=== PATIENT | male | born 1950 | race Two or more races ===

== ENCOUNTER 2020-07-15 14:56 | Emergency (ER) | payer OTHER ==
[~2020-07-15] VITALS: Ht 172.7 cm; Wt 95.3 kg
[2020-07-15 16:55] VITALS: BP 135/78
== END 2020-07-15 17:08 | disposition home or self-care (01) ==
LOC: ER 14:56
DX: S91.131A Puncture wound without foreign body of right great toe without damage to nail, initial encounter (principal); I10 Essential (primary) hypertension; E11.9 Type 2 diabetes mellitus without complications; E78.5 Hyperlipidemia, unspecified; W26.8XXA Contact with other sharp object(s), not elsewhere classified, initial encounter; Y93.89 Activity, other specified; Y92.89 Other specified places as the place of occurrence of the external cause; Y99.8 Other external cause status
CPT/HCPCS: 73630; 82962

== ENCOUNTER 2020-08-20 07:59 | Inpatient (IN) | payer OTHER ==
[~2020-08-20] VITALS: Ht 172.7 cm; Wt 96.0 kg
[2020-08-20] MEDS ORDERED: SODIUM CHLORIDE 0.9% 1,000 ML IV ONE ×2 (08:45→16:30)
[2020-08-20 08:46] LABS: Basophils # (auto) 0.1 10 ^3/uL (0-0.2); Basophils % (auto) 0.6 % (0.0-2.0); Eosinophils # (auto) 0 10 ^3/uL (0-0.8); Hemoglobin 16.5 g/dL (13.5-17.5); Lymphocytes # (auto) 1.4 10 ^3/uL (0.4-5.4); Lymphocytes % (auto) 5.7 % (10.0-50.0); Mean Corpuscular Hemoglobin 30.9 pg (28.0-32.0); Mean Corpuscular Hgb Conc. 35.2 g/dL (32.0-36.0); Monocytes # (auto) 2.1 10 ^3/uL (0-1.3); Monocytes % (auto) 8.5 % (0.0-12.0); Neutrophils # (auto) 20.7 10 ^3/uL (1.6-8.6); Neutrophils % (auto) 85.2 % (37.0-80.0); Platelet Count (auto) 237 10^3/uL (140-450); Red Blood Cells 5.34 10^6/uL (4.5-5.90); Red Cell Distribution Width 13.8 % (11.8-14.3); White Blood Cell 24.3 10^3/uL (4.4-10.8)
[2020-08-20] MEDS ORDERED: InsuLIN REG 1unit/0.01ml Soln (100units/ml) IV ONE (09:00)
[2020-08-20 09:14] LABS: Alkaline Phosphatase 121 U/L (45-117); Anion Gap 23 (5-15); Aspartate Aminotransferase 15 U/L (15-37); BUN/Creatinine Ratio 13.9; Blood Urea Nitrogen 14 mg/dL (7-18); Carbon Dioxide 10 mmol/L (21-32); Chloride 102 mmol/L (98-107); GFR African American 94 mL/min; GFR Non-African American 78 mL/min; Sodium 135 mmol/L (136-145)
[2020-08-20 09:15] LABS: Alanine Aminotransferase 22 U/L (16-61); Bilirubin, Total 1.8 mg/dL (0.2-1.0); Calcium 8.8 mg/dL (8.5-10.1); Total Protein 8.1 g/dL (6.4-8.2)
[2020-08-20 09:23] LABS: Glucose 409 mg/dL (74-106)
[2020-08-20 09:25] LABS: Urine Bacteria NONE SEEN /hpf (None Seen); Urine Blood Negative /uL (Negative); Urine Hyaline Cast FEW /lpf (0 - 2); Urine Mucus FEW (None Seen); Urine Specific Gravity 1.023 (1.001-1.035); Urine WBC 24 /hpf (0 - 3)
[2020-08-20] MEDS ORDERED: DEXTROSE (50%) 50ML SYRG IV PRN (10:45)
[2020-08-20] MEDS: InsuLIN R (HUMAN) 100 UNITS in SODIUM CHL 0.9% 99 ML IV SCH ×6 (11:00→18:21)
[2020-08-20] MEDS: ACCU-CHEK COMFORT CURVE STRIP VI SCH ×7 (12:18→23:50)
[2020-08-20] MEDS ORDERED: NITROGLYCERIN 0.4 MG SL TAB SL PRN ×2 (13:15→17:15)
[2020-08-20] MEDS ORDERED: MORPHINE SULF INJ 2 MG/ML SYRINGE 1ML IV PRN ×3 (13:15→17:15)
[2020-08-20] MEDS: SOD CHL 0.9%/ KCL 20MEQ 1,000 ML IV SCH (16:30)
[2020-08-20] MEDS ORDERED: SODIUM CHLORIDE 0.9% 1,000 ML IV SCH (16:30)
[2020-08-20] MEDS ORDERED: LACTATED RINGER'S 2,000 ML IV ONE (16:30)
[2020-08-20] MEDS ORDERED: D5W/ SOD CHL 0.9%/KCL 20MEQ 1,000 ML IV SCH ×2 (16:30→16:45)
[2020-08-20] MEDS ORDERED: METOCLOPRAMIDE HCL 5MG/ml INJ 2ml VIAL IV PRN (17:15)
[2020-08-20] MEDS ORDERED: ALUM & MAG HYDROX-SIMETH LIQ(MAALOX) 30 ML PO PRN (17:15)
[2020-08-20] MEDS ORDERED: HYDROmorphone HCL 2 MG/ML VL IV PRN (17:15)
[2020-08-20] MEDS ORDERED: cefTRIAXone 1GM/50ML D5W 50 ML IV ONE (17:15)
[2020-08-20] MEDS ORDERED: LORazepam 0.5 MG TAB PO PRN (17:15)
[2020-08-20] MEDS ORDERED: hydrALAZINE HCL 20 MG/ML VL IV PRN (17:15)
[2020-08-20] MEDS ORDERED: DOCUSATE SOD 100 MG CAP PO PRN (17:15)
[2020-08-20] MEDS ORDERED: CLINDAMYCIN 600MG IV 50 ML IV ONE (18:15)
[2020-08-20 18:28] LABS: Cholesterol 129 mg/dL (< 200)
[2020-08-20 18:32] LABS: HDL Cholesterol 47 mg/dL (40-59); LDL Cholesterol 70 mg/dL (< 100); Triglycerides 77 mg/dL (< 150)
[2020-08-20 19:22] LABS: Alcohol, Urine < 3.0 mg/dL (0-10); Amphetamine Screen, Urine NEGATIVE (NEGATIVE); Barbiturate Scree,Urine NEGATIVE (NEGATIVE); Benzodiazephine Screen, Urine NEGATIVE (NEGATIVE); Cannabinoid Screen, Urine NEGATIVE (NEGATIVE); Cocaine Screen, Urine NEGATIVE (NEGATIVE); Opiate Scree,Urine NEGATIVE (NEGATIVE); Phencyclidine Screen, Urine NEGATIVE (NEGATIVE)
[2020-08-20] MEDS: ATORVASTATIN 20 MG TAB PO SCH (23:28)
[2020-08-20] MEDS: FAMOTIDINE (10MG/ML) 2ML VL IV SCH (23:29)
[2020-08-21] MEDS: SOD CHL 0.9%/ KCL 20MEQ 1,000 ML IV SCH ×2 (00:50→10:07)
[2020-08-21] MEDS: CLINDAMYCIN 600MG IV 50 ML IV SCH ×3 (03:30→18:00)
[2020-08-21] MEDS: ACCU-CHEK COMFORT CURVE STRIP VI SCH ×3 (03:40→22:00)
[2020-08-21 05:07] LABS: Basophils # (auto) 0.1 10 ^3/uL (0-0.2); Basophils % (auto) 0.4 % (0.0-2.0); Eosinophils # (auto) 0 10 ^3/uL (0-0.8); Eosinophils % (auto) 0.1 % (0.0-7.0); Hematocrit 40.1 % (41.0-53.0); Hemoglobin 14.5 g/dL (13.5-17.5); Lymphocytes # (auto) 0.9 10 ^3/uL (0.4-5.4); Lymphocytes % (auto) 5.9 % (10.0-50.0); Mean Corpuscular Hemoglobin 31.4 pg (28.0-32.0); Mean Corpuscular Hgb Conc. 36.1 g/dL (32.0-36.0); Mean Corpuscular Volume 86.9 fL (80.0-100.0); Monocytes # (auto) 0.9 10 ^3/uL (0-1.3); Monocytes % (auto) 6.1 % (0.0-12.0); Neutrophils # (auto) 13.5 10 ^3/uL (1.6-8.6); Neutrophils % (auto) 87.5 % (37.0-80.0); Nucleated Red Blood Cells % 0.1 %; Platelet Count (auto) 182 10^3/uL (140-450); Red Blood Cells 4.61 10^6/uL (4.5-5.90); Red Cell Distribution Width 13.6 % (11.8-14.3); White Blood Cell 15.4 10^3/uL (4.4-10.8)
[2020-08-21 05:25] LABS: Albumin 2.8 g/dL (3.4-5.0); Anion Gap 8 (5-15); Blood Urea Nitrogen 13 mg/dL (7-18); Calcium 7.7 mg/dL (8.5-10.1); Carbon Dioxide 22 mmol/L (21-32); Chloride 110 mmol/L (98-107); Glucose 161 mg/dL (74-106); Sodium 140 mmol/L (136-145)
[2020-08-21 05:31] LABS: Alanine Aminotransferase 14 U/L (16-61); Alkaline Phosphatase 84 U/L (45-117); Aspartate Aminotransferase 11 U/L (15-37); BUN/Creatinine Ratio 22.8; Bilirubin, Total 0.9 mg/dL (0.2-1.0); GFR African American 182 mL/min; GFR Non-African American 151 mL/min; Phosphorus 1.6 mg/dL (2.5-4.90); Total Protein 6.1 g/dL (6.4-8.2)
[2020-08-21 05:50] LABS: Potassium 2.9 mmol/L (3.5-5.1)
[2020-08-21 07:14] LABS: INR 1.03 (0.9-1.15); Partial Thromboplastin Time 30.6 sec (23.0-31.2)
[2020-08-21] MEDS: cefTRIAXone 1GM/50ML D5W 50 ML IV SCH (09:27)
[2020-08-21] MEDS: FAMOTIDINE (10MG/ML) 2ML VL IV SCH ×2 (09:56→22:10)
[2020-08-21] MEDS: ENOXAPARIN SOD 40 MG/0.4 ML SYRINGE SC SCH (09:57)
[2020-08-21] MEDS: ASPirin 81 mg TAB PO SCH (09:57)
[2020-08-21] MEDS: InsuLIN R (HUMAN) 100 UNITS in SODIUM CHL 0.9% 99 ML IV SCH (10:05)
[2020-08-21] MEDS ORDERED: DEXTROSE (50%) 50ML SYRG IV PRN (12:15)
[2020-08-21] MEDS ORDERED: METOCLOPRAMIDE HCL 5MG/ml INJ 2ml VIAL IV PRN (12:15)
[2020-08-21] MEDS ORDERED: POTASSIUM CHL 20 Meq TABLET PO ONE (12:30)
[2020-08-21 13:11] LABS: BUN/Creatinine Ratio 15.3; Calcium 8.4 mg/dL (8.5-10.1); Potassium 3.3 mmol/L (3.5-5.1)
[2020-08-21] MEDS: SODIUM CHLORIDE 0.9% 1,000 ML IV SCH ×2 (15:07→22:30)
[2020-08-21] MEDS: InsuLIN REG 1unit/0.01ml Soln (100units/ml) SC SCH ×2 (17:00→22:00)
[2020-08-21] MEDS: INSULIN 70/30 1unit/0.01ml Susp (100units/ml) SC SCH (17:30)
[2020-08-21] MEDS: metFORMIN HYDROCHLORIDE 500 MG TAB PO SCH (18:38)
[2020-08-21 20:00] VITALS: BP 151/71
[2020-08-21 22:00] VITALS: BP 151/71
[2020-08-21] MEDS: ATORVASTATIN 20 MG TAB PO SCH (22:10)
[2020-08-22] MEDS: CLINDAMYCIN 600MG IV 50 ML IV SCH ×3 (02:00→17:32)
[2020-08-22] MEDS: ACETAMINOPHEN 325 MG TAB PO PRN ×3 (04:54→20:41)
[2020-08-22 05:00] VITALS: BP 138/83
[2020-08-22] MEDS: InsuLIN REG 1unit/0.01ml Soln (100units/ml) SC SCH ×4 (06:50→22:21)
[2020-08-22] MEDS: ACCU-CHEK COMFORT CURVE STRIP VI SCH ×4 (06:50→22:21)
[2020-08-22 07:12] LABS: Magnesium 1.9 mg/dL (1.6-2.6)
[2020-08-22 07:16] LABS: BUN/Creatinine Ratio 15.5; Calcium 8.2 mg/dL (8.5-10.1)
[2020-08-22 08:04] LABS: Basophils # (auto) 0.1 10 ^3/uL (0-0.2); Basophils % (auto) 0.7 % (0.0-2.0); Eosinophils # (auto) 0 10 ^3/uL (0-0.8); Eosinophils % (auto) 0.1 % (0.0-7.0); Hematocrit 39.2 % (41.0-53.0); Hemoglobin 13.9 g/dL (13.5-17.5); Lymphocytes # (auto) 0.5 10 ^3/uL (0.4-5.4); Lymphocytes % (auto) 6.2 % (10.0-50.0); Mean Corpuscular Hemoglobin 30.6 pg (28.0-32.0); Mean Corpuscular Hgb Conc. 35.5 g/dL (32.0-36.0); Mean Corpuscular Volume 86.1 fL (80.0-100.0); Monocytes # (auto) 0.6 10 ^3/uL (0-1.3); Monocytes % (auto) 7.7 % (0.0-12.0); Neutrophils # (auto) 6.7 10 ^3/uL (1.6-8.6); Neutrophils % (auto) 85.3 % (37.0-80.0); Nucleated Red Blood Cells % 0.1 %; Platelet Count (auto) 185 10^3/uL (140-450); Red Blood Cells 4.56 10^6/uL (4.5-5.90); Red Cell Distribution Width 13.8 % (11.8-14.3); White Blood Cell 7.8 10^3/uL (4.4-10.8)
[2020-08-22] MEDS: metFORMIN HYDROCHLORIDE 500 MG TAB PO SCH ×2 (08:26→17:32)
[2020-08-22] MEDS: INSULIN 70/30 1unit/0.01ml Susp (100units/ml) SC SCH ×2 (08:27→17:32)
[2020-08-22 08:57] VITALS: BP 133/70
[2020-08-22] MEDS: cefTRIAXone 1GM/50ML D5W 50 ML IV SCH (09:40)
[2020-08-22] MEDS: ASPirin 81 mg TAB PO SCH (09:40)
[2020-08-22] MEDS: ENOXAPARIN SOD 40 MG/0.4 ML SYRINGE SC SCH (09:40)
[2020-08-22] MEDS: FAMOTIDINE (10MG/ML) 2ML VL IV SCH ×2 (09:40→22:21)
[2020-08-22] MEDS: SODIUM CHLORIDE 0.9% 1,000 ML IV SCH ×2 (10:22→18:30)
[2020-08-22] MEDS: QUINAPRIL HCL 10 MG TAB PO SCH (12:29)
[2020-08-22 13:10] VITALS: BP 147/82
[2020-08-22 16:57] VITALS: BP 117/68
[2020-08-22 20:00] VITALS: BP 140/67
[2020-08-22 22:00] VITALS: BP 140/67
[2020-08-22] MEDS: ATORVASTATIN 20 MG TAB PO SCH (22:21)
[2020-08-22] MEDS ORDERED: AMLO-489 PO (23:09)
[2020-08-22] MEDS ORDERED: LEVO50TA7 PO (23:11)
[2020-08-22] MEDS ORDERED: ATO40T PO (23:13)
[2020-08-23] MEDS: CLINDAMYCIN 600MG IV 50 ML IV SCH ×3 (01:37→17:56)
[2020-08-23] MEDS: SODIUM CHLORIDE 0.9% 1,000 ML IV SCH ×2 (04:30→14:30)
[2020-08-23 05:00] VITALS: BP 152/86
[2020-08-23] MEDS: InsuLIN REG 1unit/0.01ml Soln (100units/ml) SC SCH ×4 (06:50→20:55)
[2020-08-23] MEDS: ACCU-CHEK COMFORT CURVE STRIP VI SCH ×4 (06:51→20:49)
[2020-08-23 08:00] VITALS: BP 147/82
[2020-08-23] MEDS: INSULIN 70/30 1unit/0.01ml Susp (100units/ml) SC SCH (08:28)
[2020-08-23] MEDS: metFORMIN HYDROCHLORIDE 500 MG TAB PO SCH ×2 (08:28→17:56)
[2020-08-23] MEDS: ASPirin 81 mg TAB PO SCH (08:29)
[2020-08-23] MEDS: FAMOTIDINE (10MG/ML) 2ML VL IV SCH ×2 (08:29→20:49)
[2020-08-23] MEDS: cefTRIAXone 1GM/50ML D5W 50 ML IV SCH (08:29)
[2020-08-23] MEDS: ENOXAPARIN SOD 40 MG/0.4 ML SYRINGE SC SCH (08:29)
[2020-08-23] MEDS: QUINAPRIL HCL 10 MG TAB PO SCH (08:31)
[2020-08-23 09:00] VITALS: BP 148/76
[2020-08-23 13:00] VITALS: BP 133/73
[2020-08-23] MEDS ORDERED: POTASSIUM CHL 20 Meq TABLET PO ONE (16:15)
[2020-08-23 17:17] VITALS: BP 172/95
[2020-08-23] MEDS ORDERED: INSULIN 70/30 1unit/0.01ml Susp (100units/ml) SC SCH (17:30)
[2020-08-23] MEDS: ATORVASTATIN 20 MG TAB PO SCH (20:49)
[2020-08-23 22:00] VITALS: BP 157/86
[2020-08-24] MEDS: SODIUM CHLORIDE 0.9% 1,000 ML IV SCH (02:00)
[2020-08-24] MEDS: CLINDAMYCIN 600MG IV 50 ML IV SCH ×2 (02:20→10:00)
[2020-08-24 06:14] VITALS: BP 147/87
[2020-08-24] MEDS: InsuLIN REG 1unit/0.01ml Soln (100units/ml) SC SCH (06:21)
[2020-08-24] MEDS: ACCU-CHEK COMFORT CURVE STRIP VI SCH (06:32)
[2020-08-24] MEDS ORDERED: INSU1INJ3 SC (06:59)
[2020-08-24] MEDS ORDERED: METF-372 PO (06:59)
[2020-08-24 07:26] LABS: Potassium 3.1 mmol/L (3.5-5.1)
[2020-08-24 07:33] LABS: BUN/Creatinine Ratio 16.4; Calcium 7.9 mg/dL (8.5-10.1); Magnesium 1.8 mg/dL (1.6-2.6)
[2020-08-24] MEDS: metFORMIN HYDROCHLORIDE 500 MG TAB PO SCH (07:44)
[2020-08-24] MEDS ORDERED: INSULIN 70/30 1unit/0.01ml Susp (100units/ml) SC SCH (08:00)
[2020-08-24] MEDS ORDERED: POTASSIUM CHL 20 Meq TABLET PO ONE (08:30)
[2020-08-24 09:00] VITALS: BP 157/85
[2020-08-24] MEDS: cefTRIAXone 1GM/50ML D5W 50 ML IV SCH (09:00)
[2020-08-24 09:27] VITALS: BP 148/76
[2020-08-24] MEDS: ENOXAPARIN SOD 40 MG/0.4 ML SYRINGE SC SCH (10:00)
[2020-08-24] MEDS: FAMOTIDINE (10MG/ML) 2ML VL IV SCH (10:00)
[2020-08-24] MEDS: ASPirin 81 mg TAB PO SCH (10:04)
[2020-08-24] MEDS: QUINAPRIL HCL 10 MG TAB PO SCH (10:05)
== END 2020-08-24 11:15 | disposition home or self-care (01) | DRG 638 ==
LOC: ER 07:59 → ICU WEST 13:08 → OVERFLOW 17:25 → TELE-WESTW 08-21 15:37
PROVIDERS: ADMIT Hospitalist; ATTEND Internal Medicine Geriatric Medicine
DX: E11.10 Type 2 diabetes mellitus with ketoacidosis without coma (principal); N39.0 Urinary tract infection, site not specified; I10 Essential (primary) hypertension; E78.5 Hyperlipidemia, unspecified; N40.1 Benign prostatic hyperplasia with lower urinary tract symptoms; E03.9 Hypothyroidism, unspecified; Z79.4 Long term (current) use of insulin; Z91.19 Patient's noncompliance with other medical treatment and regimen; Z96.651 Presence of right artificial knee joint; K52.9 Noninfective gastroenteritis and colitis, unspecified; Z20.822 Contact with and (suspected) exposure to COVID-19
CPT/HCPCS: 36415; 36600; 71045; 74176; 80048; 80053; 80061; 80307; 81001; 82010; 82306; 82805; 82962; 83036; 83605; 83735; 83880; 84100; 84443; 84484; 84550; 85025; 85610; 85730; 87040; 87086; 87426; 93005; 96361; 96374; G0378; J0696; J1815; J3490

== ENCOUNTER 2021-08-29 07:19 | Emergency (ER) | payer OTHER ==
[~2021-08-29] VITALS: Ht 172.7 cm; Wt 131.5 kg
[~2021-08-29 07:19] MED LIST: AMLO-489 PO; ATO40T PO; INSU1INJ3 SC; LEVO50TA7 PO; METF-372 PO
[2021-08-29 08:14] VITALS: BP 126/70
[2021-08-29] MEDS ORDERED: KETOROLAC TROMETH 60MG/2ML VIAL IM ONE (09:15)
== END 2021-08-29 09:07 | disposition home or self-care (01) ==
LOC: ER 07:19
DX: M54.41 Lumbago with sciatica, right side (principal); E11.9 Type 2 diabetes mellitus without complications; E78.5 Hyperlipidemia, unspecified; I10 Essential (primary) hypertension
CPT/HCPCS: 96372; 99283; J1885